=== PATIENT | female | born 1985 | race American Indian/Alaskan Native ===

== ENCOUNTER → 2017-12-28 | Outpatient (CLI) | payer OTHER | LOC: FIMAGING 07:29 | PROVIDERS: ATTEND Obstetrics & Gynecology | DX: O09.72 Supervision of high risk pregnancy due to social problems, second trimester (principal); Z3A.27 27 weeks gestation of pregnancy; F12.10 Cannabis abuse, uncomplicated ==

== ENCOUNTER → 2018-01-30 | Outpatient (CLI) | payer OTHER | LOC: FIMAGING 09:21 | PROVIDERS: ATTEND Obstetrics & Gynecology | DX: Z34.83 Encounter for supervision of other normal pregnancy, third trimester (principal); Z3A.31 31 weeks gestation of pregnancy ==

== ENCOUNTER 2018-03-16 20:48 | Observation (INO) | payer OTHER | END 2018-03-16 22:14 | disposition home or self-care (01) | LOC: FLD 20:48 | PROVIDERS: ADMIT Obstetrics & Gynecology; ATTEND Obstetrics & Gynecology | DX: Z34.83 Encounter for supervision of other normal pregnancy, third trimester (principal); Z3A.38 38 weeks gestation of pregnancy | CPT/HCPCS: 59025; G0378 ==

== ENCOUNTER 2018-04-02 04:54 | Inpatient (IN) | payer OTHER | END 2018-04-04 14:11 | disposition home or self-care (01) | LOC: FLD 04:54 → FOB 16:55 ==